=== PATIENT | female | born 1990 | race Two or more races ===

== ENCOUNTER 2016-10-05 13:15 | Emergency (ER) | payer BC ==
[2016-10-05 14:08] LABS: SPECIFIC GRAVITY 1.015 (1.001-1.030); URINE BILIRUBIN NEGATIVE (NEGATIVE); URINE BLOOD NEGATIVE (NEGATIVE); URINE GLUCOSE (UA) NEGATIVE (NEGATIVE); URINE LEUKOCYTE ESTERASE NEGATIVE (NEGATIVE); URINE NITRITE NEGATIVE (NEGATIVE); URINE PROTEIN NEGATIVE (NEGATIVE); URINE UROBILINOGEN NORMAL (0-1 mg/dl)
[2016-10-05 14:16] LABS: HCG,QUALITATIVE URINE NEGATIVE
[2016-10-05 14:17] LABS: URINE APPEARANCE CLEAR; URINE COLOR YELLOW
[2016-10-05] MEDS ORDERED: MAALOX/LIDO2%VISC/SIMETHICONE 40 ML BOT ONE (14:33)
[2016-10-05 14:37] LABS: ABSOLUTE NEUTROPHIL COUNT 4.3 K/mm3 (1.8-7.7); BASO # 0.1 K/mm3 (0.0-0.2); BASO % 0.6 % (0.2-1.0); EOS # 0.3 (0.0-0.5); EOS % 3.4 % (0.9-2.9); HEMOGLOBIN 13.1 gm/l (12.0-16.0); IMM NEUT% 0.1 % (0-1); LYMPH # 3.3 (1.0-4.8); LYMPH % 38.3 % (15-45); MEAN CELL VOLUME 89.5 fl (81.0-99.0); MEAN CORPUSCULAR HEMOGLOBIN 29.3 pg (27.0-31.0); MEAN CORPUSCULAR HGB CONC 32.8 g/dl (33.0-37.0); MEAN PLATELET VOLUME 8.8 fl (7.4-10.4); MONO # 0.7 (0.0-0.8); NEUT % 49.6 % (43-75); PLATELET COUNT 312 K/mm3 (130-400)
[2016-10-05 14:47] LABS: ALB/GLOB RATIO 1.1 (>1.0); ALBUMIN 4.2 gm/dL (3.5-5.7); CALCIUM 9.9 mg/dL (8.6-10.3)
== END 2016-10-05 15:29 | disposition home or self-care (01) ==
LOC: ED 13:15
DX: R10.13 Epigastric pain (principal); R11.0 Nausea; V49.40XD Driver injured in collision with unspecified motor vehicles in traffic accident, subsequent encounter
CPT/HCPCS: 83690; 81025; 85025; 80053; 81003; 99283 ×2; A9270